=== PATIENT | male | born 1955 | race Caucasian/White ===

== ENCOUNTER 2019-04-07 19:38 | Emergency (ER) | payer SELFPAY ==
[2019-04-07 20:30] LABS: ABSOLUTE BASOPHILS # (AUTO) 0.1 10^3/uL (0.0-0.2); ABSOLUTE LYMPHOCYTES (AUTO) 2.5 10^3/uL (0.5-4.7); ABSOLUTE MONOCYTES (AUTO) 0.4 10^3/uL (0.1-1.4); ABSOLUTE NEUT (AUTO) 3.4 10^3/uL (1.7-8.2); EOSINOPHILS % (AUTO) 0.5 % (0-6); HEMATOCRIT 49.8 % (37.9-51.0); HEMOGLOBIN 17.5 g/dL (13.5-17.0); LYMPHOCYTES % (AUTO) 38.8 % (13-45); MEAN CORPUSCULAR HGB CONC 35.2 g/dL (32.0-36.0); MEAN CORPUSCULAR VOLUME 88 fl (80-97); MONOCYTES % (AUTO) 6.2 % (3-13); PLATELET COUNT 165 10^3/uL (150-450); RED BLOOD COUNT 5.65 10^6/uL (4.35-5.55); RED CELL DISTRIBUTION WIDTH 14.3 % (11.5-14.0); SEGMENTED NEUTROPHILS % (AUTO) 53.5 % (42-78); TOTAL CELLS COUNTED % (AUTO) 100 %; WHITE BLOOD COUNT 6.4 10^3/uL (4.0-10.5)
[2019-04-07 20:40] LABS: ALBUMIN 4.5 g/dL (3.5-5.0); ALCOHOL 271 mg/dL (NONE DETECTED); ALKALINE PHOSPHATASE 80 U/L (38-126); ANION GAP 16 (5-19); ASPARTATE AMINO TRANSFERASE 45 U/L (17-59); BILIRUBIN,DIRECT 0.1 mg/dL (0.0-0.4); BILIRUBIN,TOTAL 0.9 mg/dL (0.2-1.3); BLOOD UREA NITROGEN 10 mg/dL (7-20); CALCIUM 8.9 mg/dL (8.4-10.2); CARBON DIOXIDE 22 mmol/L (22-30); CHLORIDE 109 mmol/L (98-107); GLUCOSE 141 mg/dL (75-110); POTASSIUM 3.8 mmol/L (3.6-5.0); TOTAL PROTEIN 8.3 g/dL (6.3-8.2)
[2019-04-07] MEDS ORDERED: NORMAL SALINE 500 ML IV ONE (20:40)
--- NOTE | 2019-04-07 20:44 | ER Document Report ---
ED Substance Abuse / Acc. OD - General Chief Complaint: ETOH Abuse Stated Complaint: ETOH Time Seen by Provider: 04/07/19 20:33 Notes: Patient is a 63-year-old male that comes emergency department for chief complaint of alcohol intoxication. EMS reports that patient has a roommate who called them after he hadn't seen the patient in days. Reportedly the roommate went into the patient's room and found he was lying on the floor with multiple vodka bottles around him and urine on the floor. Patient states that he came by ambulance but he is unable to tell me where he is, what happened, and he tells me his name is "Tr Romano". Patient is wearing a hospital gown from [facility] but he is unable to tell me what happened there. He states he thinks he fell and hit his head. He states he has been drinking alcohol but he is unsure how much. He denies any daily medications and he cannot recall any past medical history. He denies history of alcohol withdrawals when I asked him. He denies any current pain. He denies recreational drug use. He denies smoking. TRAVEL OUTSIDE OF THE [place] IN LAST 30 DAYS: No - Related Data Allergies/Adverse Reactions: Unable to Assess Allergy (Verified 04/07/19 20:12) Past Medical History - General Information source: Patient - Social History Smoking Status: Never Smoker Frequency of alcohol use: Heavy Drug Abuse: None Lives with: Friend Family History: None Patient has suicidal ideation: No Patient has homicidal ideation: No Review of Systems - Review of Systems Constitutional: See HPI EENT: No symptoms reported Cardiovascular: No symptoms reported Respiratory: No symptoms reported Gastrointestinal: No symptoms reported Genitourinary: No symptoms reported Male Genitourinary: No symptoms reported Musculoskeletal: No symptoms reported Skin: No symptoms reported Hematologic/Lymphatic: No symptoms reported Neurological/Psychological: See HPI Physical Exam - Vital signs Vitals: Temp Resp 98.5 F 18 04/07/19 19:41 04/07/19 19:41 - Notes Notes: GENERAL: Patient sluggish, slurring his speech, appears intoxicated. He was cooperative and he is awake when I enter the room. HEAD: Normocephalic, atraumatic. EYES: Pupils equal, round, dilated equally, reactive to light. Extraocular movements intact. ENT: Oral mucosa very dry, tongue midline. Oropharynx unremarkable. Airway patent. NECK: Full range of motion. Supple. Trachea midline. LUNGS: Clear to auscultation bilaterally, no wheezes, rales, or rhonchi. No res piratory distress. HEART: Tachycardic, normal rhythm, no murmur ABDOMEN: Soft, non-tender. Non-distended. EXTREMITIES: Moves all 4 extremities spontaneously. No edema, normal radial and dorsalis pedis pulses bilaterally. No cyanosis. BACK: no cervical, thoracic, lumbar midline tenderness. No saddle anesthesia, normal distal neurovascular exam. Moves all extremities in full range of motion. Old surgical scar over the right calf. NEUROLOGICAL: Alert but not oriented to place or events. Slurred speech. Cranial nerves II through XII grossly intact. PSYCH: Cooperative SKIN: Warm, dry, normal turgor. No rashes or lesions noted. Course - Re-evaluation Re-evalutation: Patient initially intoxicated and very difficult with history but still cooperative. Patient is sluggish, slurring his speech, and ataxic when he tries to stand. No signs of trauma however. CT of the head and neck were performed because of his reported head injury, these were negative for acute findings, shows old T1 compression fracture. Patient is not point tender in this location. He has no numbness or radiating symptoms. Chest x-ray unremarkable. CBC unremarkable. Chemistry actually unremarkable including no hyponatremia, unremarkable lipase, unremarkable otherwise. Troponin not elevated, CK not elevated, LFTs unremarkable. 04/08/19 Patient had been medicated for nausea, given IV fluids, on my reevaluation he is much more alert, he is not slurring his words, he states he has heartburn but he has no complaints otherwise. However patient states that other than falling and hitting his head and at a different point vomiting he really cannot remember what happened last night. He states he remembers that he was drinking alcohol but he cannot remember why. 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 Patient is wearing a [employer] hospital gown and he cannot recall why he is wearing this as well. Patient states he is generally been confused about this. Patient does appear to be earnest. I suspect he is postconcussive with some amnesia. His neurological exam is now normal. Patient is asking that if he can be treated for his reflux and tolerate p.o. that he can be discharged home with his friend. Because patient is clinically sober, his work-up does not show any concerning findings, and patient is not suicidal homicidal patient will be discharged with recommendations and return precautions along with medications for his hung over state. Patient states appreciation and agreement. 04/08/19 Patient tolerated p.o. without difficulty, is smiling, ambulating without ataxia, is requesting to go home. Discharged with return precautions and instructions. - Vital Signs Vital signs: Temp Pulse Resp BP Pulse Ox 98.3 F 116 H 18 155/105 H 96 04/08/19 06:57 04/08/19 06:57 04/08/19 06:57 04/08/19 06:57 04/08/19 06:57 - Laboratory Result Diagrams: 04/07/19 19:51 04/07/19 19:51 Laboratory results interpreted by me: 04/07/19 04/07/19 04/08/19 19:51 19:51 00:00 RBC 5.65 H Hgb 17.5 H RDW 14.3 H Sodium 146.5 H Chloride 109 H Glucose 141 H Total Protein 8.3 H Urine Blood SMALL H Urine Urobilinogen 2.0 H Discharge - Discharge Clinical Impression: Alcohol intoxication Qualifiers: Complication of substance-induced condition: with unspecified complication Qualified Code(s): F10.929 - Alcohol use, unspecified with intoxication, unspecified Head injury Qualifiers: Encounter type: initial encounter Qualified Code(s): S09.90XA - Unspecified injury of head, initial encounter Condition: Stable Disposition: HOME, SELF-CARE Additional Instructions: Your imaging of the head does not show any concerning findings, the imaging of the neck shows a probable old fracture of T1 as we discussed. Your remaining work-up does not show any concerning findings. Avoid drinking alcohol to intoxication. Because of your difficulty with memory along with reported head injury I suspect that you have had a concussion with some memory loss. Please follow-up closely with primary care for additional aung luation and management. Take the nausea medication if needed, take Tylenol if needed for pain, consider [id number] Pepcid, drink plenty fluids and rest. Return if you worsen including vomiting, severe headache, or any other concerning or worsening symptoms. See additional instructions below. Post-Concussion Syndrome Post-concussion syndrome often follows a mild head injury. Dizziness, mild nausea, mild headache, trouble concentrating, and a general sense of "not being right" may persist for a week or two. This is a frequent complication of concussion. However, if the symptoms worsen, or new symptoms develop, you should be re-examined by the physician. There is no specific cure for post-concussion syndrome. You can take mild pain medication such as ibuprofen or acetaminophen. While you should not drive if you are dizzy, you can get back to your regular activities as quickly as the symptoms will allow. And while vigorous exercise may worsen the headache, mild physical activity often is helpful. Sitting and thinking about your symptoms will worsen them. If difficulties continue, you may need referral for special therapy to help you regain full mental function. Call the physician if you are worsening, or if symptoms are still present in one week. Report any new symptoms immediately. Head Injury Precautions At this point, there is no evidence that your head injury is serious. Observation is necessary, however. Limit activity for the first 24 hours. During the first 24 hours, check to see approximately every two to three hours that the patient is easily arousable, responds normally, and can perform common tasks such as walking without difficulty. Contact your doctor or go to the hospital if any of the following things occur: Persistent vomiting, difficulty in arousing the patient, worsening or continued headache, or failure to improve as expected. Head injuries can cause symptoms that persist for a few days or even a few weeks. Prescriptions: Ondansetron [Zofran Odt 4 mg Tablet] 1 - 2 tab PO Q4H PRN #15 tab.rapdis PRN Reason: For Nausea/Vomiting Forms: Return to Work
--- NOTE | 2019-04-07 21:31 | RADIOLOGY REPORT (SQ) ---
EXAM DESCRIPTION: XR CHEST 1 VIEW COMPLETED DATE/TME: 04/07/2019 20:42 CLINICAL HISTORY: 63 years Male altered mental status, ?aspiration, ETOH COMPARISON: None. FINDINGS: The cardiomediastinal silhouette appears unremarkable. No consolidating infiltrates or pleural effusions. No pneumothorax. IMPRESSION: No acute abnormality is identified.
--- NOTE | 2019-04-07 21:33 | RADIOLOGY REPORT (SQ) ---
PROCEDURE: CLINICAL HISTORY: 63 years Male fall, ETOH, altered mental status COMPARISON: 06/19/2015 TECHNIQUE: Contiguous axial CT images obtained through the brain without IV contrast. This exam was performed according to our department optimization program which includes automated exposure control, adjustment of the mA and/or kv according to patient size and/or use of iterative reconstruction technique. FINDINGS: The ventricles and sulci are prominent consistent with atrophic changes. Microvascular ischemic changes. No midline shift or mass effect. No mass lesions. No acute hemorrhage. Atherosclerotic calcifications. Old right frontal infarct No fluid or significant mucosal thickening in the visualized paranasal sinuses. No depressed calvarial fractures. IMPRESSION: No acute intracranial abnormality is identified. Generalized atrophy with microvascular ischemic changes.
--- NOTE | 2019-04-07 21:39 | RADIOLOGY REPORT (SQ) ---
EXAM DESCRIPTION: CT CERVICAL SPINE WITHOUT IV CONTRAST COMPLETED DATE/TME: 04/07/2019 20:43 CLINICAL HISTORY: 63 years Male fall, ETOH, ? Head injury COMPARISON: None available. The previous CT cervical spine that is available is not of the same patient as both of these are Dick Vallejo TECHNIQUE: Contiguous axial images obtained through the cervical spine without IV contrast. Coronal and sagittal reformatted images obtained. This exam was performed according to our department optimization program which includes automated exposure control, adjustment of the mA and/or kv according to patient size and/or use of iterative reconstruction technique. FINDINGS: There is anterolisthesis of C5-C6 and C6 on C7 which appears degenerative in nature. Narrowing of disc interspaces at C6-7 and C7-T1. Chronic wedging is present at C6 and C7. There is mild superior compression at T1. This is age indeterminate but could be acute in nature. C4-5: Mild right neural foraminal narrowing. C5-6: Bilateral neural foraminal stenosis. C6-7: Mild central canal and severe bilateral neural foraminal stenosis. IMPRESSION: Multilevel degenerative change without acute cervical fracture noted Superior compression at T1 which is age indeterminant
--- NOTE | 2019-04-07 22:30 | EKG REPORT ---
SEVERITY:- ABNORMAL ECG - SINUS TACHYCARDIA PROBABLE LEFT ATRIAL ABNORMALITY LEFT AXIS DEVIATION BORDERLINE R WAVE PROGRESSION, ANTERIOR LEADS NONSPECIFIC T ABNORMALITIES, ANTERIOR LEADS : Confirmed by: Yesenia Gaines 07-Apr-2019 22:29:24
[2019-04-07] MEDS ORDERED: NORMAL SALINE 1000 ML 1,000 ML IV ONE (22:34)
[2019-04-08] MEDS ORDERED: PROMETHAZINE HCL INJ 25 MG/1 ML VIAL IM ONE (00:02)
[2019-04-08 00:13] LABS: APPEARANCE,URINE CLEAR; BILIRUBIN,URINE NEGATIVE (NEGATIVE); COLOR,URINE YELLOW; GLUCOSE, URINE NEGATIVE (NEGATIVE); KETONES,URINE NEGATIVE (NEGATIVE); LEUKOCYTE ESTERASE,URINE NEGATIVE (NEGATIVE); NITRITE,URINE NEGATIVE (NEGATIVE); PROTEIN,URINE NEGATIVE (NEGATIVE); URINE SPECIFIC GRAVITY 1.017
[2019-04-08 00:28] LABS: URINE AMPHETAMINES SCREEN NEGATIVE; URINE BARBITURATES SCREEN NEGATIVE; URINE BENZODIAZEPINES SCREEN NEGATIVE; URINE COCAINE SCREEN NEGATIVE; URINE MARIJUANA (THC) SCREEN NEGATIVE; URINE METHADONE SCREEN NEGATIVE; URINE PHENCYCLIDINE SCREEN NEGATIVE
[2019-04-08] MEDS ORDERED: FAMOTIDINE 20 MG TABLET ONE (06:00)
[2019-04-08] MEDS ORDERED: SUCRALFATE 1 GM TABLET ONE (06:00)
[2019-04-08] MEDS ORDERED: ONDANSETRON HCL INJ/PF 4 MG/2 ML SDV ONE (06:01)
[2019-04-08 06:59] VITALS: BP 155/105
== END 2019-04-08 07:17 | disposition home or self-care (01) ==
LOC: ER 19:38
DX: F10.129 Alcohol abuse with intoxication, unspecified (principal); S09.90XA Unspecified injury of head, initial encounter; W19.XXXA Unspecified fall, initial encounter; R00.0 Tachycardia, unspecified; K21.9 Gastro-esophageal reflux disease without esophagitis; R11.2 Nausea with vomiting, unspecified
CPT/HCPCS: 93005; 36415; 80307 ×2; 82550; 83690; 83735; 85025; 80053; 81001; 84484; 71045; 70450; 72125; 93010; J2550; J2405; J7030; J7040; 96361; 96372; 96374; 99284